=== PATIENT | male | born 1995 | race Caucasian/White ===

== ENCOUNTER 2016-09-21 13:25 | Day surgery (SDC) | payer BC, OTHER ==
[2016-09-21 13:52] VITALS: PULSE 70
[2016-09-21] MEDS ORDERED: LIDOCAINE 1% 2 ML INJ ID PRN (13:53)
[2016-09-21] MEDS ORDERED: LR 1,000 ML IV ONE (13:53)
[2016-09-21] MEDS ORDERED: LIDOCAINE 1% 2 ML INJ ONE (13:54)
[2016-09-21] MEDS ORDERED: MIDAZOLAM 2 MG/2 ML VIAL ONE (15:02)
[2016-09-21] MEDS ORDERED: MIDAZOLAM 2 MG/2 ML VIAL IVP ONE (15:03)
--- NOTE | 2016-09-21 15:05 | PDANEPAE ---
ANE History of Present Illness tonsillectomy, poss adenoidectomy ANE Past Medical History - Cardiovascular History Hx Hypertension: No Hx Arrhythmias: No Hx Chest Pain: No Hx Coronary Artery / Peripheral Vascular Disease: No Hx CHF / Valvular Disease: No Hx Palpitations: No - Pulmonary History Hx COPD: No Hx Asthma/Reactive Airway Disease: No Hx Recent Upper Respiratory Infection: No Hx Oxygen in Use at Home: No Hx Sleep Apnea: No Sleep Apnea Screening Result - Last Documented: Negative - Neurologic History Hx Cerebrovascular Accident: No Hx Seizures: No Hx Dementia: No - Endocrine History Hx Diabetes: No - Renal History Hx Renal Disorders: No - Liver History Hx Hepatic Disorders: No - Neurological & Psychiatric Hx Hx Neurological and Psychiatric Disorders: No - Cancer History Hx Cancer: No - Congenital Disorder History Hx Congenital Disorders: No - GI History Hx Gastrointestinal Disorders: No - Other Health History Other Health History: wears glasses occassionally - Chronic Pain History Chronic Pain: No - Surgical History Prior Surgeries: wisdom teeth ANE Review of Systems - Exercise capacity METS (RN): 6 METS ANE Patient History - Allergies Allergies/Adverse Reactions: No Known Allergies Allergy (Verified 09/11/16 16:32) - Home Medications Home Medications: NK [No Known Home Meds] 09/11/16 [Last Taken Unknown] - NPO status NPO Since - Liquids (Date): 09/20/16 NPO Since - Liquids (Time): 23:30 NPO Since - Solids (Date): 09/20/16 NPO Since - Solids (Time): 23:30 - Anes Hx Hx Anesthesia Complications (with details): vagal respones to oral surgeon sedation. 0 other problems - Smoking Hx Smoking Status: Never smoked - Family Anes Hx Family Hx Anesthesia Complications: none ANE Labs/Vital Signs - Vital Signs Blood Pressure: 124/75 Heart Rate: 70 Respiratory Rate: 20 O2 Sat (%): 96 Height: 187.96 cm Weight: 87.997 kg ANE Physical Exam - Airway Neck exam: FROM Mallampati Score: Class 1 Mouth exam: normal dental/mouth exam - Pulmonary Pulmonary: no respiratory distress - Cardiovascular Cardiovascular: regular rate and rhythym - ASA Status ASA Status: I ANE Anesthesia Plan Anesthesia Plan: general endotracheal anesthesia (R/B/A explained. no questions. agrees to proceed)
[2016-09-21] MEDS ORDERED: LIDOCAINE 2% 100 MG/5 ML SYR ONE (15:13)
[2016-09-21] MEDS ORDERED: PROPOFOL/EMULSION 500 MG/50 ML BOTTLE IV ONE (15:13)
[2016-09-21] MEDS ORDERED: fentaNYL 100 MCG/2 ML INJ ONE (15:13)
[2016-09-21] MEDS ORDERED: REMIFENTANIL HCL 1 MG VIAL ONE (15:13)
[2016-09-21] MEDS ORDERED: LIDOCAINE HCL 160 MG/4 ML LTA KIT TP ONE (15:14)
[2016-09-21] MEDS ORDERED: DEXAMETHASONE 4 MG/ML VIAL ONE ×2 (15:14)
[2016-09-21] MEDS ORDERED: ONDANSETRON 4 MG/2 ML VIAL ONE (15:14)
--- NOTE | 2016-09-21 15:21 | PDHPUP ---
History & Physical Update H&P update statement: This history and physical update is based on an assessment of the patient which was completed after admission or registration (within 24 hours), but prior to the surgery/procedure. H&P update: no change in patient's condition since H&P completed (discussed OMFS incident with Dr. Fay, agrees ok to proceed)
[2016-09-21] MEDS ORDERED: ONDANSETRON 4 MG/2 ML VIAL IVP PRN ×2 (16:02→16:06)
[2016-09-21] MEDS ORDERED: MEPERIDINE 25 MG/ML SYR IVP PRN (16:06)
[2016-09-21] MEDS ORDERED: METOCLOPRAMIDE 10 MG/2 ML VIAL IVP PRN (16:06)
[2016-09-21] MEDS ORDERED: ACETAMINOPHEN 500 MG TAB PO PRN (16:06)
[2016-09-21] MEDS ORDERED: LABETALOL HCL 50 MG/10 ML SYR IVP PRN (16:06)
[2016-09-21] MEDS ORDERED: PROMETHAZINE HCL 25 MG/ML INJ IVP PRN (16:06)
[2016-09-21] MEDS ORDERED: fentaNYL 100 MCG/2 ML INJ IVP PRN ×2 (16:06)
[2016-09-21] MEDS ORDERED: LR 500 ML IV PRN (16:06)
[2016-09-21] MEDS ORDERED: NALOXONE HCL 0.4 MG/ML INJ IVP PRN (16:06)
[2016-09-21] MEDS ORDERED: HYDROCODONE/APAP 5/325 TAB PO PRN (16:06)
[2016-09-21] MEDS ORDERED: DEXAMETHASONE 4 MG/ML VIAL IVP PRN (16:06)
[2016-09-21] MEDS ORDERED: OXYCODONE/APAP 5/325 TAB PO PRN (16:06)
[2016-09-21] MEDS ORDERED: ALBUTEROL 3 ML DEYVIAL IH PRN (16:06)
--- NOTE | 2016-09-21 16:09 | POSTANESTH ---
Post Anesthetic Evaluation Cardiovascular Status: Normal, Stable Respiratory Status: Normal, Stable Level of Consciousness/Mental Status: Can Participate in Eval Pain Control: Adequate, Prn Tx Ordered Nausea/Vomiting Control: Adequate, Prn Tx Ordered Complications Possibly Related to Anesthesia: None Noted
[2016-09-21 16:10] VITALS: TEMP 97.3
[2016-09-21 17:58] VITALS: BP 134/87; RESP 18; O2SAT 98
--- NOTE | 2016-09-22 03:35 | GOP ---
[f rep st] OPERATIVE REPORT DATE OF OPERATION: 09/21/2016 SURGEON: Darling Dougherty MD ANESTHESIA: General. PREOPERATIVE DIAGNOSIS: 1. Sleep-disordered breathing. 2. Enlarged tonsils. POSTOPERATIVE DIAGNOSIS: 1. Sleep-disordered breathing. 2. Enlarged tonsils. PROCEDURE PERFORMED: Tonsillectomy bilaterally over 11 yo. FINDINGS: Patient was found to have 3+ cryptic tonsils bilaterally with stones. These were removed without difficulty bilaterally, and he had a significantly more patent airway. The adenoids were not enlarged, and so were not removed. ESTIMATED BLOOD LOSS: Minimal. DESCRIPTION OF PROCEDURE: The patient was first seen in the preoperative area, where informed consent was obtained. He was then brought back to the operating room, where Anesthesia sedated and intubated him. The bed was turned 90 degrees , a shoulder roll was placed, and he was prepped and draped in the normal fashion. A Delfin-Jignesh mouth gag was placed in the mouth and then retracted, and then suspended giving good visualization of the oropharynx. I palpated the palate to make sure that there was no submucous cleft palate, which there was not, and so a red rubber catheter was placed through the right naris, and brought out through the oral cavity to suspend the palate. The right tonsil was grasped using a curved Allis clamp and then electrocautery on a low setting was used to remove the tonsil as a whole in a subcapsular plane. Any small bleeding vessels were cauterized using bipolar cautery on a [id number] setting. The tonsil was sent off the field for permanent pathology, and then I did the exact same thing on the left side, removing the tonsil as a whole, cauterizing any small bleeding vessels with bipolar cautery, and then sending the tonsil off the field. The adenoid bed was evaluated with the adenoid mirror. This was not enlarged. He really had no adenoid tissue, so the mirror was removed, the red rubber catheter was removed, and then the Delfin-Jignesh mouth gag was unsuspended to release the tension. We re-suspended it after about 20 seconds. There was no significant active bleeding. At this point, the Delfin-Jignesh mouth gag was completely removed, and the patient was turned back over to Anesthesia, where he was awakened and extubated, and taken to PACU in stable condition. There were no complications, and he tolerated the procedure well. COMPLICATIONS: None. /[id number]/MODL MTDD
== END 2016-09-21 17:32 | disposition home or self-care (01) ==
LOC: FSGY 13:25
PROVIDERS: ATTEND Otolaryngology
PROC: 0CTPXZZ Resection of Tonsils, External Approach (ICD-10-PCS; principal; 2016-09-21 15:00)
DX: J35.01 Chronic tonsillitis (principal); R06.83 Snoring
CPT/HCPCS: J1100; J2001; J2250; J2405; J2704; J3010